=== PATIENT | female | born 1965 | race Caucasian/White ===

== ENCOUNTER 2024-05-22 08:36 | Outpatient (CLI) | payer BC | END 2024-05-22 08:37 | disposition home or self-care (01) | LOC: CSHSLEEP 08:36 | PROVIDERS: ATTEND Family Medicine | DX: G47.9 Sleep disorder, unspecified (principal); R53.83 Other fatigue; R06.83 Snoring; G47.00 Insomnia, unspecified; I10 Essential (primary) hypertension; G47.33 Obstructive sleep apnea (adult) (pediatric) | CPT/HCPCS: 95800 ==